=== PATIENT | female | born 1960 | race Caucasian/White ===

== ENCOUNTER 2018-03-06 08:45 | Inpatient (IN) ==
[2018-03-06 10:20] LABS: Basophils % 0.7 % (0.0-0.8); Eosinophils # 0.2 10*3/uL (0.0-0.87); Eosinophils % 5.2 % (0.00-10.9); Hematocrit 32.7 VOL% (35.7-47.0); Hemoglobin 10.4 GM/DL (12.0-16.0); Immature Granulocytes % 1.3 %; Immature Granulocytes Absolute 0.06 #; Lymphocytes # 0.7 10*3/uL (1.4-4.0); Lymphocytes % 15.2 % (21.3-54.2); Mean Corpuscular HGB Conc 31.8 GM/DL (32-36); Mean Corpuscular Hemoglobin 35 PG (27-34); Mean Corpuscular Volume 108.6 FL (87-102); Mean Platelet Volume 10.4 FL (9.6-12.0); Monocytes # 0.5 10*3/uL (0.11-0.8); Monocytes % 9.8 % (1.7-12.7); Neutrophils # 3.1 10*3/uL (1.4-7.4); Neutrophils % 67.8 % (38.7-73.9); Red Blood Count 3.01 MC/CUMM (3.8-5.5); Red Cell Distribution Width 19.6 % (9.3-17.3); White Blood Count 4.6 T/CUMM (4-12)
[2018-03-06 10:21] LABS: Platelet Count 66 T/CUMM (130-400)
[2018-03-06 10:38] LABS: Albumin 2.5 G/DL (3.4-5.0); Calcium 8.6 MG/DL (8.5-10.1); Osmolality,Calculated 281.1 MOS/KG (273-304); Potassium 3.3 MMOL/L (3.5-5.1); Total Protein 6.8 G/DL (6.4-8.3)
[2018-03-06 10:39] LABS: Macrocytosis 1+; Polychromasia Slight
[2018-03-06 10:40] LABS: Platelet Estimate Decreased
[2018-03-06 10:42] LABS: Ovalocytes Slight
[2018-03-06 10:43] LABS: Hypochromasia Slight
[2018-03-06] MEDS ORDERED: POTASSIUM CHLORIDE 20 MEQ TABLET PO STA (11:37)
[2018-03-06] MEDS ORDERED: LEVOFLOXACIN INJ 500 MG in PREMIX 1 EACH IV STA (12:04)
[2018-03-06] MEDS ORDERED: INFLUENZA VIRUS VACCINE 0.5 ML SYRINGE IM ONE (13:12)
[2018-03-06] MEDS ORDERED: FUROSEMIDE 40 MG/4 ML VIAL IV ONE (16:25)
[2018-03-06] MEDS: traZODone 50 MG TABLET PO SCH (20:21)
[2018-03-06] MEDS: BUMETANIDE 1 MG TABLET PO SCH ×2 (20:21→20:24)
[2018-03-06] MEDS: DOCUSATE SODIUM 100 MG CAPSULE PO SCH ×2 (20:21→20:24)
[2018-03-06] MEDS: LACTULOSE 20 GM/30 ML UDCUP PO SCH ×2 (20:21→20:24)
[2018-03-06] MEDS: RIFAXIMIN 550 MG TABLET PO SCH (20:21)
[2018-03-06] MEDS: ACETAMINOPHEN 325 MG TABLET PO PRN (23:28)
[2018-03-07 07:18] LABS: Basophils % 0.9 % (0.0-0.8); Eosinophils # 0.3 10*3/uL (0.0-0.87); Eosinophils % 5.5 % (0.00-10.9); Hematocrit 26.6 VOL% (35.7-47.0); Immature Granulocytes % 0.9 %; Immature Granulocytes Absolute 0.04 #; Lymphocytes # 1.1 10*3/uL (1.4-4.0); Lymphocytes % 24.6 % (21.3-54.2); Mean Corpuscular HGB Conc 31.6 GM/DL (32-36); Mean Corpuscular Hemoglobin 35 PG (27-34); Mean Corpuscular Volume 109.9 FL (87-102); Mean Platelet Volume 10.2 FL (9.6-12.0); Monocytes # 0.5 10*3/uL (0.11-0.8); Monocytes % 10.5 % (1.7-12.7); Neutrophils # 2.6 10*3/uL (1.4-7.4); Neutrophils % 57.6 % (38.7-73.9); Red Blood Count 2.42 MC/CUMM (3.8-5.5); White Blood Count 4.6 T/CUMM (4-12)
[2018-03-07 07:19] LABS: Hemoglobin 8.4 GM/DL (12.0-16.0); Platelet Count 58 T/CUMM (130-400)
[2018-03-07 07:30] LABS: Calcium 7.5 MG/DL (8.5-10.1); Osmolality,Calculated 281.1 MOS/KG (273-304); Potassium 3.3 MMOL/L (3.5-5.1)
[2018-03-07 07:50] LABS: Platelet Estimate Decreased
[2018-03-07 07:51] LABS: Anisocytosis 2+; Hypochromasia Slight; Macrocytosis Slight
[2018-03-07] MEDS: LACTULOSE 20 GM/30 ML UDCUP PO SCH ×2 (09:37→21:25)
[2018-03-07] MEDS: BUMETANIDE 1 MG TABLET PO SCH ×2 (09:37→21:25)
[2018-03-07] MEDS: DOCUSATE SODIUM 100 MG CAPSULE PO SCH ×2 (09:37→21:26)
[2018-03-07] MEDS: FAMOTIDINE 20 MG TABLET PO SCH (09:37)
[2018-03-07] MEDS: SPIRONOLACTONE 50 MG TABLET PO SCH (09:37)
[2018-03-07] MEDS: FLUoxetine 20 MG CAPSULE PO SCH (09:37)
[2018-03-07] MEDS: PANTOPRAZOLE 40 MG TABLET PO SCH (09:37)
[2018-03-07] MEDS: LEVOTHYROXINE 200 MCG TABLET PO SCH (09:37)
[2018-03-07] MEDS: RIFAXIMIN 550 MG TABLET PO SCH ×2 (09:37→21:20)
[2018-03-07] MEDS: POTASSIUM CHLORIDE 20 MEQ TABLET PO SCH (09:37)
[2018-03-07] MEDS: BENZONATATE 100 MG CAPSULE PO PRN ×2 (10:21→21:20)
[2018-03-07] MEDS: LEVOFLOXACIN INJ 750 MG in PREMIX 1 EACH IV SCH (10:21)
[2018-03-07] MEDS: MECLIZINE 25 MG TABLET PO PRN ×2 (10:29→21:20)
[2018-03-07 14:14] LABS: Total Protein,Body Fluid 2.3 G/DL
[2018-03-07 14:20] LABS: Lymphocytes,Pleural Fluid 97 %; Neutrophils,Pleural Fluid 3 %
[2018-03-07 14:25] LABS: RBC,Pleural Fluid 1386 T/CUMM
[2018-03-07 15:31] LABS: Hematocrit 28.7 VOL% (35.7-47.0); Hemoglobin 8.8 GM/DL (12.0-16.0)
[2018-03-07] MEDS: ACETAMINOPHEN 325 MG TABLET PO PRN ×2 (15:43→21:24)
[2018-03-07] MEDS: traZODone 50 MG TABLET PO SCH (21:20)
[2018-03-08 06:00] LABS: Basophils % 0.9 % (0.0-0.8); Eosinophils # 0.3 10*3/uL (0.0-0.87); Eosinophils % 7.2 % (0.00-10.9); Hematocrit 27.1 VOL% (35.7-47.0); Hemoglobin 8.4 GM/DL (12.0-16.0); Immature Granulocytes % 0.6 %; Immature Granulocytes Absolute 0.02 #; Lymphocytes # 0.9 10*3/uL (1.4-4.0); Lymphocytes % 25.3 % (21.3-54.2); Mean Corpuscular Hemoglobin 34 PG (27-34); Mean Corpuscular Volume 109.3 FL (87-102); Mean Platelet Volume 10.6 FL (9.6-12.0); Monocytes # 0.4 10*3/uL (0.11-0.8); Monocytes % 10.9 % (1.7-12.7); Neutrophils # 1.9 10*3/uL (1.4-7.4); Neutrophils % 55.1 % (38.7-73.9); Red Blood Count 2.48 MC/CUMM (3.8-5.5); Red Cell Distribution Width 19.7 % (9.3-17.3); White Blood Count 3.5 T/CUMM (4-12)
[2018-03-08 06:03] LABS: Platelet Count 53 T/CUMM (130-400)
[2018-03-08 06:14] LABS: Calcium 7.8 MG/DL (8.5-10.1); Potassium 3.1 MMOL/L (3.5-5.1)
[2018-03-08 06:36] LABS: Hypochromasia 1+; Ovalocytes Slight; Platelet Estimate Decreased
[2018-03-08 06:37] LABS: Macrocytosis Slight
[2018-03-08] MEDS ORDERED: POTASSIUM CHLORIDE 20 MEQ TABLET PO ONE (07:49)
[2018-03-08] MEDS: BUMETANIDE 1 MG TABLET PO SCH ×2 (10:04→20:59)
[2018-03-08] MEDS: LEVOTHYROXINE 200 MCG TABLET PO SCH (10:04)
[2018-03-08] MEDS: MECLIZINE 25 MG TABLET PO PRN (10:04)
[2018-03-08] MEDS: FLUoxetine 20 MG CAPSULE PO SCH (10:05)
[2018-03-08] MEDS: SPIRONOLACTONE 50 MG TABLET PO SCH (10:05)
[2018-03-08] MEDS: BENZONATATE 100 MG CAPSULE PO PRN (10:05)
[2018-03-08] MEDS: LACTULOSE 20 GM/30 ML UDCUP PO SCH ×2 (10:06→20:59)
[2018-03-08] MEDS: ACETAMINOPHEN 325 MG TABLET PO PRN (10:06)
[2018-03-08] MEDS: FAMOTIDINE 20 MG TABLET PO SCH (10:08)
[2018-03-08] MEDS: RIFAXIMIN 550 MG TABLET PO SCH ×2 (10:08→20:59)
[2018-03-08] MEDS: POTASSIUM CHLORIDE 20 MEQ TABLET PO SCH (10:08)
[2018-03-08] MEDS: DOCUSATE SODIUM 100 MG CAPSULE PO SCH ×2 (10:08→20:59)
[2018-03-08] MEDS: ONDANSETRON 4 MG/2 ML VIAL IV PRN (10:10)
[2018-03-08] MEDS: PANTOPRAZOLE 40 MG TABLET PO SCH (12:04)
[2018-03-08] MEDS: LEVOFLOXACIN INJ 750 MG in PREMIX 1 EACH IV SCH (12:05)
[2018-03-08] MEDS: MECLIZINE 25 MG TABLET PO SCH (20:59)
[2018-03-08] MEDS: traZODone 50 MG TABLET PO SCH (23:31)
[2018-03-09] MEDS: ACETAMINOPHEN 325 MG TABLET PO PRN ×2 (00:50→11:51)
[2018-03-09 05:20] LABS: Calcium 7.9 MG/DL (8.5-10.1); Osmolality,Calculated 276.4 MOS/KG (273-304); Potassium 3.4 MMOL/L (3.5-5.1)
[2018-03-09 05:37] LABS: Basophils % 0.7 % (0.0-0.8); Eosinophils # 0.3 10*3/uL (0.0-0.87); Eosinophils % 7.5 % (0.00-10.9); Hematocrit 27.5 VOL% (35.7-47.0); Hemoglobin 8.8 GM/DL (12.0-16.0); Immature Granulocytes Absolute 0.04 #; Lymphocytes % 23.1 % (21.3-54.2); Mean Corpuscular Hemoglobin 35 PG (27-34); Mean Corpuscular Volume 109.1 FL (87-102); Monocytes # 0.5 10*3/uL (0.11-0.8); Monocytes % 12.3 % (1.7-12.7); Neutrophils # 2.3 10*3/uL (1.4-7.4); Neutrophils % 55.4 % (38.7-73.9); Red Blood Count 2.52 MC/CUMM (3.8-5.5); Red Cell Distribution Width 19.3 % (9.3-17.3); White Blood Count 4.2 T/CUMM (4-12)
[2018-03-09 05:46] LABS: Platelet Count 62 T/CUMM (130-400)
[2018-03-09] MEDS: PANTOPRAZOLE 40 MG TABLET PO SCH (08:21)
[2018-03-09] MEDS: FAMOTIDINE 20 MG TABLET PO SCH (08:21)
[2018-03-09] MEDS: MECLIZINE 25 MG TABLET PO SCH (08:21)
[2018-03-09] MEDS: RIFAXIMIN 550 MG TABLET PO SCH ×2 (08:21→21:28)
[2018-03-09] MEDS: LEVOTHYROXINE 200 MCG TABLET PO SCH (08:21)
[2018-03-09] MEDS: POTASSIUM CHLORIDE 20 MEQ TABLET PO SCH (08:21)
[2018-03-09] MEDS: FLUoxetine 20 MG CAPSULE PO SCH (08:21)
[2018-03-09] MEDS: SPIRONOLACTONE 50 MG TABLET PO SCH (08:21)
[2018-03-09] MEDS: LACTULOSE 20 GM/30 ML UDCUP PO SCH ×2 (08:21→21:30)
[2018-03-09] MEDS: BUMETANIDE 1 MG TABLET PO SCH ×2 (08:21→21:30)
[2018-03-09] MEDS: DOCUSATE SODIUM 100 MG CAPSULE PO SCH ×2 (08:22→21:30)
[2018-03-09 08:27] LABS: Basophils % 0.5 % (0.0-0.8); Eosinophils # 0.3 10*3/uL (0.0-0.87); Hematocrit 27.5 VOL% (35.7-47.0); Hemoglobin 8.7 GM/DL (12.0-16.0); Immature Granulocytes % 0.5 %; Immature Granulocytes Absolute 0.02 #; Lymphocytes # 0.9 10*3/uL (1.4-4.0); Lymphocytes % 22.9 % (21.3-54.2); Mean Corpuscular HGB Conc 31.6 GM/DL (32-36); Mean Corpuscular Hemoglobin 35 PG (27-34); Mean Corpuscular Volume 109.6 FL (87-102); Mean Platelet Volume 10.3 FL (9.6-12.0); Monocytes # 0.4 10*3/uL (0.11-0.8); Monocytes % 10.9 % (1.7-12.7); Neutrophils # 2.3 10*3/uL (1.4-7.4); Neutrophils % 58.2 % (38.7-73.9); Platelet Count 54 T/CUMM (130-400); Red Blood Count 2.51 MC/CUMM (3.8-5.5)
[2018-03-09 09:13] LABS: Vitamin B12 1435 PG/ML (211-911)
[2018-03-09 10:55] LABS: Sedimentation Rate-Westergren 35 MM/HR (0-30)
[2018-03-09] MEDS: LEVOFLOXACIN INJ 750 MG in PREMIX 1 EACH IV SCH (11:51)
[2018-03-09] MEDS: MECLIZINE 25 MG TABLET PO PRN ×2 (13:33→21:28)
[2018-03-09] MEDS: traZODone 50 MG TABLET PO SCH (21:28)
[2018-03-10 06:20] LABS: Eosinophils # 0.3 10*3/uL (0.0-0.87); Eosinophils % 8.1 % (0.00-10.9); Hematocrit 28.7 VOL% (35.7-47.0); Hemoglobin 8.9 GM/DL (12.0-16.0); Immature Granulocytes % 0.7 %; Immature Granulocytes Absolute 0.03 #; Lymphocytes % 24.9 % (21.3-54.2); Mean Corpuscular Hemoglobin 34 PG (27-34); Mean Platelet Volume 10.1 FL (9.6-12.0); Monocytes # 0.4 10*3/uL (0.11-0.8); Monocytes % 9.6 % (1.7-12.7); Neutrophils # 2.3 10*3/uL (1.4-7.4); Neutrophils % 55.7 % (38.7-73.9); Red Blood Count 2.61 MC/CUMM (3.8-5.5); Red Cell Distribution Width 18.6 % (9.3-17.3); White Blood Count 4.1 T/CUMM (4-12)
[2018-03-10 06:22] LABS: Platelet Count 65 T/CUMM (130-400)
[2018-03-10 06:33] LABS: Calcium 7.5 MG/DL (8.5-10.1); Osmolality,Calculated 274.5 MOS/KG (273-304); Potassium 3.7 MMOL/L (3.5-5.1)
[2018-03-10] MEDS: POTASSIUM CHLORIDE 20 MEQ TABLET PO SCH (09:19)
[2018-03-10] MEDS: PANTOPRAZOLE 40 MG TABLET PO SCH (09:19)
[2018-03-10] MEDS: LEVOTHYROXINE 200 MCG TABLET PO SCH (09:19)
[2018-03-10] MEDS: RIFAXIMIN 550 MG TABLET PO SCH ×2 (09:19→21:30)
[2018-03-10] MEDS: FLUoxetine 20 MG CAPSULE PO SCH (09:19)
[2018-03-10] MEDS: FAMOTIDINE 20 MG TABLET PO SCH (09:19)
[2018-03-10] MEDS: SPIRONOLACTONE 50 MG TABLET PO SCH (09:19)
[2018-03-10] MEDS: LACTULOSE 20 GM/30 ML UDCUP PO SCH ×2 (09:19→21:29)
[2018-03-10] MEDS: BUMETANIDE 1 MG TABLET PO SCH ×2 (09:19→21:29)
[2018-03-10] MEDS: MECLIZINE 25 MG TABLET PO PRN ×2 (09:26→21:30)
[2018-03-10] MEDS: DOCUSATE SODIUM 100 MG CAPSULE PO SCH ×2 (11:33→21:29)
[2018-03-10] MEDS: LEVOFLOXACIN INJ 750 MG in PREMIX 1 EACH IV SCH (14:08)
[2018-03-10] MEDS: traZODone 50 MG TABLET PO SCH (21:30)
[2018-03-10] MEDS: ONDANSETRON 4 MG/2 ML VIAL IV PRN (22:55)
[2018-03-11] MEDS: FLUoxetine 20 MG CAPSULE PO SCH (08:16)
[2018-03-11] MEDS: POTASSIUM CHLORIDE 20 MEQ TABLET PO SCH (08:16)
[2018-03-11] MEDS: FAMOTIDINE 20 MG TABLET PO SCH (08:16)
[2018-03-11] MEDS: RIFAXIMIN 550 MG TABLET PO SCH ×2 (08:16→21:30)
[2018-03-11] MEDS: LACTULOSE 20 GM/30 ML UDCUP PO SCH ×2 (08:16→21:30)
[2018-03-11] MEDS: BUMETANIDE 1 MG TABLET PO SCH ×2 (08:16→21:31)
[2018-03-11] MEDS: PANTOPRAZOLE 40 MG TABLET PO SCH (08:16)
[2018-03-11] MEDS: SPIRONOLACTONE 50 MG TABLET PO SCH (08:16)
[2018-03-11] MEDS: LEVOTHYROXINE 200 MCG TABLET PO SCH (08:16)
[2018-03-11] MEDS: MECLIZINE 25 MG TABLET PO PRN (08:19)
[2018-03-11] MEDS: DOCUSATE SODIUM 100 MG CAPSULE PO SCH ×2 (10:52→21:30)
[2018-03-11] MEDS: LEVOFLOXACIN 500 MG TABLET PO SCH (12:30)
[2018-03-11] MEDS: traZODone 50 MG TABLET PO SCH (21:30)
[2018-03-12 05:50] LABS: Basophils % 0.8 % (0.0-0.8); Eosinophils # 0.2 10*3/uL (0.0-0.87); Eosinophils % 6.5 % (0.00-10.9); Hematocrit 26.8 VOL% (35.7-47.0); Hemoglobin 8.2 GM/DL (12.0-16.0); Immature Granulocytes % 1.1 %; Immature Granulocytes Absolute 0.04 #; Lymphocytes # 0.9 10*3/uL (1.4-4.0); Lymphocytes % 24.9 % (21.3-54.2); Mean Corpuscular HGB Conc 30.6 GM/DL (32-36); Mean Corpuscular Hemoglobin 34 PG (27-34); Mean Corpuscular Volume 110.7 FL (87-102); Monocytes # 0.4 10*3/uL (0.11-0.8); Monocytes % 11.1 % (1.7-12.7); Neutrophils # 2.1 10*3/uL (1.4-7.4); Neutrophils % 55.6 % (38.7-73.9); Red Blood Count 2.42 MC/CUMM (3.8-5.5); Red Cell Distribution Width 18.3 % (9.3-17.3); White Blood Count 3.7 T/CUMM (4-12)
[2018-03-12 05:52] LABS: Platelet Count 58 T/CUMM (130-400)
[2018-03-12 06:06] LABS: Calcium 7.8 MG/DL (8.5-10.1); Osmolality,Calculated 281.1 MOS/KG (273-304); Potassium 3.8 MMOL/L (3.5-5.1)
[2018-03-12] MEDS: FLUoxetine 20 MG CAPSULE PO SCH (08:30)
[2018-03-12] MEDS: SPIRONOLACTONE 50 MG TABLET PO SCH (08:30)
[2018-03-12] MEDS: LACTULOSE 20 GM/30 ML UDCUP PO SCH ×2 (08:30→21:24)
[2018-03-12] MEDS: RIFAXIMIN 550 MG TABLET PO SCH ×2 (08:30→21:25)
[2018-03-12] MEDS: LEVOFLOXACIN 500 MG TABLET PO SCH (08:30)
[2018-03-12] MEDS: FAMOTIDINE 20 MG TABLET PO SCH (08:30)
[2018-03-12] MEDS: LEVOTHYROXINE 200 MCG TABLET PO SCH (08:30)
[2018-03-12] MEDS: BUMETANIDE 1 MG TABLET PO SCH ×2 (08:30→21:24)
[2018-03-12] MEDS: POTASSIUM CHLORIDE 20 MEQ TABLET PO SCH (08:31)
[2018-03-12] MEDS: MECLIZINE 25 MG TABLET PO PRN ×2 (08:31→21:25)
[2018-03-12] MEDS: PANTOPRAZOLE 40 MG TABLET PO SCH (08:31)
[2018-03-12] MEDS: DOCUSATE SODIUM 100 MG CAPSULE PO SCH ×2 (08:31→21:25)
[2018-03-12] MEDS: traZODone 50 MG TABLET PO SCH (21:25)
[2018-03-13] MEDS: FAMOTIDINE 20 MG TABLET PO SCH (08:16)
[2018-03-13] MEDS: LACTULOSE 20 GM/30 ML UDCUP PO SCH (08:16)
[2018-03-13] MEDS: BUMETANIDE 1 MG TABLET PO SCH (08:16)
[2018-03-13] MEDS: LEVOTHYROXINE 200 MCG TABLET PO SCH (08:17)
[2018-03-13] MEDS: POTASSIUM CHLORIDE 20 MEQ TABLET PO SCH (08:17)
[2018-03-13] MEDS: RIFAXIMIN 550 MG TABLET PO SCH (08:17)
[2018-03-13] MEDS: SPIRONOLACTONE 50 MG TABLET PO SCH (08:17)
[2018-03-13] MEDS: PANTOPRAZOLE 40 MG TABLET PO SCH (08:17)
[2018-03-13] MEDS: LEVOFLOXACIN 500 MG TABLET PO SCH (08:17)
[2018-03-13] MEDS: FLUoxetine 20 MG CAPSULE PO SCH (08:17)
[2018-03-13 08:29] VITALS: BP 100/56
== END 2018-03-13 08:38 | disposition home or self-care (01) | DRG 432 ==
LOC: N.ED 08:45 → N.EDINP 11:51 → N.2W 12:31 → N.5E 14:05
PROVIDERS: ADMIT Family Medicine; ATTEND Family Medicine

== ENCOUNTER 2018-03-26 08:09 | Inpatient (IN) ==
[2018-03-26 09:02] LABS: Basophils % 0.9 % (0.0-0.8); Eosinophils # 0.4 10*3/uL (0.0-0.87); Eosinophils % 7.8 % (0.00-10.9); Hematocrit 31.6 VOL% (35.7-47.0); INR 1.6; Immature Granulocytes % 1.1 %; Immature Granulocytes Absolute 0.05 #; Lymphocytes # 0.8 10*3/uL (1.4-4.0); Lymphocytes % 17.1 % (21.3-54.2); Mean Corpuscular HGB Conc 31.6 GM/DL (32-36); Mean Corpuscular Hemoglobin 34 PG (27-34); Mean Corpuscular Volume 108.2 FL (87-102); Mean Platelet Volume 9.7 FL (9.6-12.0); Monocytes # 0.4 10*3/uL (0.11-0.8); Monocytes % 9.3 % (1.7-12.7); Neutrophils % 63.8 % (38.7-73.9); PT Patient Result 16.8 SECS; Platelet Count 75 T/CUMM (130-400); Red Blood Count 2.92 MC/CUMM (3.8-5.5); Red Cell Distribution Width 16.7 % (9.3-17.3); White Blood Count 4.6 T/CUMM (4-12)
[2018-03-26] MEDS ORDERED: ALBUTEROL 2.5 MG/3 ML NEB RESP TX STA (09:05)
[2018-03-26 09:22] LABS: Albumin 2.2 G/DL (3.4-5.0); Bilirubin,Total 8.3 MG/DL (0.2-1.0); Calcium 8.2 MG/DL (8.5-10.1); Osmolality,Calculated 279.1 MOS/KG (273-304); Potassium 3.2 MMOL/L (3.5-5.1); Total Protein 6.6 G/DL (6.4-8.3)
[2018-03-26] MEDS ORDERED: FUROSEMIDE 40 MG/4 ML VIAL IV STA (09:22)
[2018-03-26] MEDS ORDERED: LEVOFLOXACIN INJ 500 MG in PREMIX 1 EACH IV STA (09:25)
[2018-03-26 09:56] LABS: Microcytosis 1+; Ovalocytes Few; Polychromasia Few; Schistocytes Slight
[2018-03-26 09:57] LABS: Hypochromasia Slight; Platelet Estimate Decreased; Tear Drop Cells Slight
[2018-03-26] MEDS ORDERED: LACTATED RINGERS 1,000 ML IV SCH (12:12)
[2018-03-26] MEDS: SPIRONOLACTONE 25 MG TABLET PO SCH ×2 (13:18→21:14)
[2018-03-26] MEDS: FUROSEMIDE 20 MG/2 ML VIAL IV SCH (13:18)
[2018-03-26] MEDS ORDERED: MAGNESIUM SULF RIDER 2 GM in PREMIX 1 EACH IV ONE (14:16)
[2018-03-26] MEDS: POTASSIUM CHLORIDE 20 MEQ TABLET PO PRN ×3 (15:27→21:14)
[2018-03-26] MEDS: ACETAMINOPHEN 325 MG TABLET PO PRN ×2 (17:15→22:38)
[2018-03-26] MEDS: LACTULOSE 20 GM/30 ML UDCUP PO SCH ×2 (21:13→21:17)
[2018-03-26] MEDS: DOCUSATE SODIUM 100 MG CAPSULE PO SCH ×2 (21:13→21:18)
[2018-03-26] MEDS: RIFAXIMIN 550 MG TABLET PO SCH (21:14)
[2018-03-26] MEDS: traZODone 50 MG TABLET PO SCH (21:14)
[2018-03-27] MEDS: KETOROLAC 15 MG/1 ML VIAL IV PRN ×2 (02:38→21:34)
[2018-03-27] MEDS: POTASSIUM CHLORIDE 20 MEQ TABLET PO PRN (04:00)
[2018-03-27 05:21] LABS: Basophils % 0.5 % (0.0-0.8); Eosinophils # 0.3 10*3/uL (0.0-0.87); Eosinophils % 6.5 % (0.00-10.9); Hematocrit 27.5 VOL% (35.7-47.0); Hemoglobin 8.5 GM/DL (12.0-16.0); Immature Granulocytes % 0.5 %; Immature Granulocytes Absolute 0.02 #; Lymphocytes # 0.8 10*3/uL (1.4-4.0); Mean Corpuscular HGB Conc 30.9 GM/DL (32-36); Mean Corpuscular Hemoglobin 34 PG (27-34); Mean Corpuscular Volume 108.7 FL (87-102); Mean Platelet Volume 10.1 FL (9.6-12.0); Monocytes # 0.4 10*3/uL (0.11-0.8); Monocytes % 11.4 % (1.7-12.7); Neutrophils # 2.3 10*3/uL (1.4-7.4); Neutrophils % 60.1 % (38.7-73.9); Red Blood Count 2.53 MC/CUMM (3.8-5.5); Red Cell Distribution Width 16.4 % (9.3-17.3); White Blood Count 3.9 T/CUMM (4-12)
[2018-03-27 05:23] LABS: Platelet Count 59 T/CUMM (130-400)
[2018-03-27 05:42] LABS: Albumin 1.9 G/DL (3.4-5.0); Bilirubin,Total 7.6 MG/DL (0.2-1.0); Osmolality,Calculated 281.1 MOS/KG (273-304); Potassium 3.1 MMOL/L (3.5-5.1); Total Protein 5.8 G/DL (6.4-8.3)
[2018-03-27] MEDS ORDERED: SPIRONOLACTONE 50 MG TABLET PO SCH (09:00)
[2018-03-27] MEDS: FAMOTIDINE 20 MG TABLET PO SCH (09:42)
[2018-03-27] MEDS: LACTULOSE 20 GM/30 ML UDCUP PO SCH ×2 (09:42→21:26)
[2018-03-27] MEDS: DOCUSATE SODIUM 100 MG CAPSULE PO SCH ×2 (09:43→21:26)
[2018-03-27] MEDS: PANTOPRAZOLE 40 MG TABLET PO SCH (09:43)
[2018-03-27] MEDS: RIFAXIMIN 550 MG TABLET PO SCH ×2 (09:43→21:25)
[2018-03-27] MEDS: DILTIAZEM CD 180 MG CAPSULE PO SCH (09:43)
[2018-03-27] MEDS: SPIRONOLACTONE 25 MG TABLET PO SCH ×2 (09:43→21:24)
[2018-03-27] MEDS: LEVOTHYROXINE 200 MCG TABLET PO SCH (09:43)
[2018-03-27] MEDS: POTASSIUM CHLORIDE 20 MEQ TABLET PO SCH (09:43)
[2018-03-27] MEDS: FUROSEMIDE 20 MG/2 ML VIAL IV SCH (09:43)
[2018-03-27] MEDS: FLUoxetine 20 MG CAPSULE PO SCH (09:43)
[2018-03-27] MEDS: ACETAMINOPHEN 325 MG TABLET PO PRN (09:44)
[2018-03-27] MEDS: ONDANSETRON 4 MG/2 ML VIAL IV PRN (10:45)
[2018-03-27] MEDS ORDERED: POTASSIUM CHLORIDE 20 MEQ TABLET PO ONE (14:14)
[2018-03-27] MEDS ORDERED: ONDANSETRON 4 MG/2 ML VIAL IV ONE (14:25)
[2018-03-27] MEDS: BUMETANIDE 1 MG TABLET PO SCH ×2 (14:50→21:24)
[2018-03-27] MEDS: traZODone 50 MG TABLET PO SCH (23:00)
[2018-03-28] MEDS: ALBUTEROL/IPRATROPIUM 3 ML NEB RESP TX SCH ×4 (00:17→20:38)
[2018-03-28] MEDS: LEVOTHYROXINE 200 MCG TABLET PO SCH (09:32)
[2018-03-28] MEDS: RIFAXIMIN 550 MG TABLET PO SCH ×2 (09:32→21:52)
[2018-03-28] MEDS: DOCUSATE SODIUM 100 MG CAPSULE PO SCH ×2 (09:32→21:53)
[2018-03-28] MEDS: FLUoxetine 20 MG CAPSULE PO SCH (09:32)
[2018-03-28] MEDS: FAMOTIDINE 20 MG TABLET PO SCH (09:32)
[2018-03-28] MEDS: POTASSIUM CHLORIDE 20 MEQ TABLET PO SCH (09:32)
[2018-03-28] MEDS: PANTOPRAZOLE 40 MG TABLET PO SCH (09:33)
[2018-03-28] MEDS: ACETAMINOPHEN 325 MG TABLET PO PRN (10:41)
[2018-03-28] MEDS: LACTULOSE 20 GM/30 ML UDCUP PO SCH ×2 (10:43→21:53)
[2018-03-28 11:30] LABS: Basophils # 0.1 10*3/uL (0.0-0.2); Basophils % 0.8 % (0.0-0.8); Eosinophils # 0.5 10*3/uL (0.0-0.87); Eosinophils % 9.1 % (0.00-10.9); Hematocrit 35.2 VOL% (35.7-47.0); Hemoglobin 10.9 GM/DL (12.0-16.0); Immature Granulocytes % 0.8 %; Immature Granulocytes Absolute 0.05 #; Lymphocytes # 1.1 10*3/uL (1.4-4.0); Lymphocytes % 18.4 % (21.3-54.2); Mean Corpuscular Hemoglobin 34 PG (27-34); Mean Corpuscular Volume 110.7 FL (87-102); Mean Platelet Volume 10.1 FL (9.6-12.0); Monocytes # 0.4 10*3/uL (0.11-0.8); Monocytes % 7.3 % (1.7-12.7); Neutrophils # 3.8 10*3/uL (1.4-7.4); Neutrophils % 63.6 % (38.7-73.9); Red Blood Count 3.18 MC/CUMM (3.8-5.5); Red Cell Distribution Width 16.6 % (9.3-17.3); White Blood Count 5.9 T/CUMM (4-12)
[2018-03-28 11:36] LABS: Platelet Count 100 T/CUMM (130-400)
[2018-03-28 11:45] LABS: Calcium 8.5 MG/DL (8.5-10.1); Osmolality,Calculated 274.7 MOS/KG (273-304); Potassium 3.4 MMOL/L (3.5-5.1)
[2018-03-28 11:49] LABS: Hypochromasia 1+; Ovalocytes Slight; Platelet Estimate Decreased
[2018-03-28] MEDS: SPIRONOLACTONE 25 MG TABLET PO SCH ×2 (13:32→21:53)
[2018-03-28] MEDS: BUMETANIDE 1 MG TABLET PO SCH ×2 (13:32→21:52)
[2018-03-28] MEDS: DILTIAZEM CD 180 MG CAPSULE PO SCH (13:32)
[2018-03-28] MEDS: DILTIAZEM CD 120 MG CAPSULE PO SCH (15:50)
[2018-03-28] MEDS ORDERED: MAGNESIUM SULF RIDER 2 GM in PREMIX 1 EACH IV ONE (16:50)
[2018-03-28] MEDS ORDERED: MAGNESIUM SULF RIDER 2 GM in PREMIX 1 EACH IV PRN (17:02)
[2018-03-28] MEDS ORDERED: MAGNESIUM SULF RIDER 100 ML IV ONE (17:25)
[2018-03-28] MEDS: BENZONATATE 100 MG CAPSULE PO PRN (17:37)
[2018-03-28] MEDS ORDERED: MAGNESIUM SULF RIDER 4 GM in PREMIX 1 EACH IV PRN (18:00)
[2018-03-28] MEDS: traZODone 50 MG TABLET PO SCH (21:53)
[2018-03-28] MEDS: KETOROLAC 15 MG/1 ML VIAL IV PRN (22:00)
[2018-03-29] MEDS: ALBUTEROL/IPRATROPIUM 3 ML NEB RESP TX SCH ×4 (02:30→20:26)
[2018-03-29 06:03] LABS: Osmolality,Calculated 279.3 MOS/KG (273-304); Potassium 3.5 MMOL/L (3.5-5.1)
[2018-03-29 07:00] LABS: Basophils % 0.6 % (0.0-0.8); Eosinophils # 0.3 10*3/uL (0.0-0.87); Eosinophils % 7.8 % (0.00-10.9); Hematocrit 28.2 VOL% (35.7-47.0); Immature Granulocytes % 0.3 %; Immature Granulocytes Absolute 0.01 #; Lymphocytes # 0.5 10*3/uL (1.4-4.0); Mean Corpuscular HGB Conc 31.2 GM/DL (32-36); Mean Corpuscular Hemoglobin 34 PG (27-34); Mean Corpuscular Volume 110.2 FL (87-102); Mean Platelet Volume 10.2 FL (9.6-12.0); Monocytes # 0.3 10*3/uL (0.11-0.8); Monocytes % 8.7 % (1.7-12.7); Neutrophils # 2.2 10*3/uL (1.4-7.4); Neutrophils % 66.6 % (38.7-73.9); Red Blood Count 2.56 MC/CUMM (3.8-5.5); Red Cell Distribution Width 16.7 % (9.3-17.3); White Blood Count 3.3 T/CUMM (4-12)
[2018-03-29 07:01] LABS: Hemoglobin 8.8 GM/DL (12.0-16.0); Platelet Count 62 T/CUMM (130-400)
[2018-03-29 07:47] LABS: Platelet Estimate Decreased
[2018-03-29 07:48] LABS: Anisocytosis 1+; Macrocytosis Slight
[2018-03-29] MEDS: RIFAXIMIN 550 MG TABLET PO SCH ×2 (08:23→21:31)
[2018-03-29] MEDS: BUMETANIDE 1 MG TABLET PO SCH ×2 (08:23→22:02)
[2018-03-29] MEDS: FAMOTIDINE 20 MG TABLET PO SCH (08:23)
[2018-03-29] MEDS: DILTIAZEM CD 120 MG CAPSULE PO SCH (08:23)
[2018-03-29] MEDS: LEVOTHYROXINE 200 MCG TABLET PO SCH (08:23)
[2018-03-29] MEDS: POTASSIUM CHLORIDE 20 MEQ TABLET PO SCH (08:24)
[2018-03-29] MEDS: PANTOPRAZOLE 40 MG TABLET PO SCH (08:24)
[2018-03-29] MEDS: SPIRONOLACTONE 25 MG TABLET PO SCH ×2 (08:24→21:32)
[2018-03-29] MEDS: FLUoxetine 20 MG CAPSULE PO SCH (08:24)
[2018-03-29] MEDS: ACETAMINOPHEN 325 MG TABLET PO PRN (10:53)
[2018-03-29] MEDS: DOCUSATE SODIUM 100 MG CAPSULE PO SCH ×2 (10:56→22:02)
[2018-03-29] MEDS: LACTULOSE 20 GM/30 ML UDCUP PO SCH ×2 (10:56→22:02)
[2018-03-29] MEDS: POTASSIUM CHLORIDE 20 MEQ TABLET PO PRN (21:32)
[2018-03-29] MEDS: KETOROLAC 15 MG/1 ML VIAL IV PRN (21:42)
[2018-03-29] MEDS: HydrOXYzine PAMOATE 25 MG CAPSULE PO PRN (21:42)
[2018-03-30] MEDS: ALBUTEROL/IPRATROPIUM 3 ML NEB RESP TX SCH ×4 (00:42→19:43)
[2018-03-30] MEDS: POTASSIUM CHLORIDE 20 MEQ TABLET PO PRN (01:34)
[2018-03-30 05:09] LABS: Basophils % 0.5 % (0.0-0.8); Eosinophils # 0.4 10*3/uL (0.0-0.87); Eosinophils % 7.4 % (0.00-10.9); Hematocrit 27.1 VOL% (35.7-47.0); Hemoglobin 8.2 GM/DL (12.0-16.0); Immature Granulocytes % 0.5 %; Immature Granulocytes Absolute 0.03 #; Lymphocytes # 1.1 10*3/uL (1.4-4.0); Lymphocytes % 19.8 % (21.3-54.2); Mean Corpuscular HGB Conc 30.3 GM/DL (32-36); Mean Corpuscular Hemoglobin 34 PG (27-34); Mean Corpuscular Volume 111.1 FL (87-102); Monocytes # 0.5 10*3/uL (0.11-0.8); Monocytes % 9.4 % (1.7-12.7); Neutrophils # 3.4 10*3/uL (1.4-7.4); Neutrophils % 62.4 % (38.7-73.9); Platelet Count 57 T/CUMM (130-400); Red Blood Count 2.44 MC/CUMM (3.8-5.5); Red Cell Distribution Width 16.8 % (9.3-17.3); White Blood Count 5.5 T/CUMM (4-12)
[2018-03-30 05:28] LABS: Calcium 7.9 MG/DL (8.5-10.1); Osmolality,Calculated 277.4 MOS/KG (273-304); Potassium 4.2 MMOL/L (3.5-5.1)
[2018-03-30 05:35] LABS: Band Neutrophils 17 % (0-10); Eosinophils 4 % (0-10); Lymphocytes 20 % (20-55); Platelet Estimate Decreased; Segmented Neutrophils 49 % (50-85); Total Cells Counted 100
[2018-03-30 05:36] LABS: Anisocytosis 1+; Hypochromasia Slight
[2018-03-30] MEDS: ACETAMINOPHEN 325 MG TABLET PO PRN ×2 (09:31→15:15)
[2018-03-30] MEDS: LACTULOSE 20 GM/30 ML UDCUP PO SCH ×2 (09:31→21:25)
[2018-03-30] MEDS: HydrOXYzine PAMOATE 25 MG CAPSULE PO PRN ×2 (09:31→21:22)
[2018-03-30] MEDS: FAMOTIDINE 20 MG TABLET PO SCH (09:31)
[2018-03-30] MEDS: BUMETANIDE 1 MG TABLET PO SCH ×2 (09:31→21:25)
[2018-03-30] MEDS: PANTOPRAZOLE 40 MG TABLET PO SCH (09:32)
[2018-03-30] MEDS: FLUoxetine 20 MG CAPSULE PO SCH (09:32)
[2018-03-30] MEDS: DOCUSATE SODIUM 100 MG CAPSULE PO SCH ×3 (09:32→21:26)
[2018-03-30] MEDS: DILTIAZEM CD 120 MG CAPSULE PO SCH (09:32)
[2018-03-30] MEDS: SPIRONOLACTONE 25 MG TABLET PO SCH ×2 (09:32→21:15)
[2018-03-30] MEDS: FLUoxetine 10 MG CAPSULE PO SCH (09:32)
[2018-03-30] MEDS: RIFAXIMIN 550 MG TABLET PO SCH ×2 (09:32→21:13)
[2018-03-30] MEDS: POTASSIUM CHLORIDE 20 MEQ TABLET PO SCH (09:32)
[2018-03-30] MEDS: LEVOTHYROXINE 200 MCG TABLET PO SCH (09:41)
[2018-03-30] MEDS: AMOXICILLIN 500 MG CAPSULE PO SCH ×2 (15:13→21:46)
[2018-03-30] MEDS: FLUTICASONE 50 MCG NASAL SPRAY 16 GM BOTTLE BOTH NARES SCH (15:14)
[2018-03-30] MEDS: CETIRIZINE 10 MG TABLET PO SCH (15:14)
[2018-03-30 17:43] LABS: INR 1.4; PT Patient Result 15.6 SECS
[2018-03-30] MEDS: SILDENAFIL 20 MG TABLET PO SCH (21:14)
[2018-03-30] MEDS: KETOROLAC 15 MG/1 ML VIAL IV PRN (21:22)
[2018-03-31] MEDS: ALBUTEROL/IPRATROPIUM 3 ML NEB RESP TX SCH ×4 (01:08→19:03)
[2018-03-31 06:22] LABS: Basophils % 0.6 % (0.0-0.8); Eosinophils # 0.4 10*3/uL (0.0-0.87); Eosinophils % 7.8 % (0.00-10.9); Hematocrit 28.9 VOL% (35.7-47.0); Hemoglobin 8.7 GM/DL (12.0-16.0); Immature Granulocytes % 0.4 %; Immature Granulocytes Absolute 0.02 #; Lymphocytes # 0.9 10*3/uL (1.4-4.0); Lymphocytes % 18.5 % (21.3-54.2); Mean Corpuscular HGB Conc 30.1 GM/DL (32-36); Mean Corpuscular Hemoglobin 34 PG (27-34); Mean Platelet Volume 10.5 FL (9.6-12.0); Monocytes # 0.4 10*3/uL (0.11-0.8); Monocytes % 8.8 % (1.7-12.7); Neutrophils # 3.1 10*3/uL (1.4-7.4); Neutrophils % 63.9 % (38.7-73.9); Red Blood Count 2.58 MC/CUMM (3.8-5.5); Red Cell Distribution Width 16.7 % (9.3-17.3); White Blood Count 4.9 T/CUMM (4-12)
[2018-03-31 06:24] LABS: Platelet Count 61 T/CUMM (130-400)
[2018-03-31 06:38] LABS: Calcium 7.9 MG/DL (8.5-10.1); Osmolality,Calculated 277.5 MOS/KG (273-304); Potassium 4.8 MMOL/L (3.5-5.1)
[2018-03-31] MEDS: AMOXICILLIN 500 MG CAPSULE PO SCH ×3 (06:42→22:04)
[2018-03-31 06:47] LABS: Platelet Estimate Decreased
[2018-03-31 06:48] LABS: Polychromasia Few
[2018-03-31] MEDS: POTASSIUM CHLORIDE 20 MEQ TABLET PO SCH (09:21)
[2018-03-31] MEDS: RIFAXIMIN 550 MG TABLET PO SCH ×2 (09:21→22:04)
[2018-03-31] MEDS: DILTIAZEM CD 120 MG CAPSULE PO SCH (09:21)
[2018-03-31] MEDS: LEVOTHYROXINE 200 MCG TABLET PO SCH (09:21)
[2018-03-31] MEDS: SPIRONOLACTONE 25 MG TABLET PO SCH ×2 (09:21→22:08)
[2018-03-31] MEDS: FAMOTIDINE 20 MG TABLET PO SCH (09:21)
[2018-03-31] MEDS: FLUoxetine 10 MG CAPSULE PO SCH (09:21)
[2018-03-31] MEDS: FLUoxetine 20 MG CAPSULE PO SCH (09:21)
[2018-03-31] MEDS: CETIRIZINE 10 MG TABLET PO SCH (09:22)
[2018-03-31] MEDS: PANTOPRAZOLE 40 MG TABLET PO SCH (09:22)
[2018-03-31] MEDS: BUMETANIDE 1 MG TABLET PO SCH ×2 (09:22→22:03)
[2018-03-31] MEDS: SILDENAFIL 20 MG TABLET PO SCH ×3 (09:23→22:04)
[2018-03-31] MEDS: LACTULOSE 20 GM/30 ML UDCUP PO SCH ×2 (09:25→22:04)
[2018-03-31] MEDS: DOCUSATE SODIUM 100 MG CAPSULE PO SCH ×2 (09:25→22:04)
[2018-03-31] MEDS: FLUTICASONE 50 MCG NASAL SPRAY 16 GM BOTTLE BOTH NARES SCH (09:26)
[2018-03-31] MEDS: HydrOXYzine PAMOATE 25 MG CAPSULE PO PRN ×2 (14:30→22:04)
[2018-03-31] MEDS: ACETAMINOPHEN 325 MG TABLET PO PRN (16:22)
[2018-03-31] MEDS: KETOROLAC 15 MG/1 ML VIAL IV PRN (18:40)
[2018-04-01] MEDS: ALBUTEROL/IPRATROPIUM 3 ML NEB RESP TX SCH ×4 (00:34→19:01)
[2018-04-01] MEDS: AMOXICILLIN 500 MG CAPSULE PO SCH ×3 (05:16→21:12)
[2018-04-01] MEDS: DILTIAZEM CD 120 MG CAPSULE PO SCH (08:30)
[2018-04-01] MEDS: RIFAXIMIN 550 MG TABLET PO SCH ×2 (08:30→21:12)
[2018-04-01] MEDS: LEVOTHYROXINE 200 MCG TABLET PO SCH (08:30)
[2018-04-01] MEDS: PANTOPRAZOLE 40 MG TABLET PO SCH (08:31)
[2018-04-01] MEDS: BUMETANIDE 1 MG TABLET PO SCH ×2 (08:31→20:30)
[2018-04-01] MEDS: FAMOTIDINE 20 MG TABLET PO SCH (08:31)
[2018-04-01] MEDS: SPIRONOLACTONE 25 MG TABLET PO SCH ×2 (08:31→21:12)
[2018-04-01] MEDS: POTASSIUM CHLORIDE 20 MEQ TABLET PO SCH (08:31)
[2018-04-01] MEDS: FLUoxetine 20 MG CAPSULE PO SCH (08:31)
[2018-04-01] MEDS: FLUoxetine 10 MG CAPSULE PO SCH (08:32)
[2018-04-01] MEDS: CETIRIZINE 10 MG TABLET PO SCH (08:32)
[2018-04-01] MEDS: DOCUSATE SODIUM 100 MG CAPSULE PO SCH ×2 (08:33→20:31)
[2018-04-01] MEDS: FLUTICASONE 50 MCG NASAL SPRAY 16 GM BOTTLE BOTH NARES SCH (08:33)
[2018-04-01] MEDS: SILDENAFIL 20 MG TABLET PO SCH ×3 (08:38→21:12)
[2018-04-01] MEDS: HydrOXYzine PAMOATE 25 MG CAPSULE PO PRN ×2 (08:44→21:12)
[2018-04-01] MEDS: ONDANSETRON 4 MG/2 ML VIAL IV PRN (09:27)
[2018-04-01] MEDS: LACTULOSE 20 GM/30 ML UDCUP PO SCH ×2 (10:24→20:30)
[2018-04-01] MEDS: ACETAMINOPHEN 325 MG TABLET PO PRN (16:21)
[2018-04-01] MEDS: KETOROLAC 15 MG/1 ML VIAL IV PRN (18:45)
[2018-04-02] MEDS: ALBUTEROL/IPRATROPIUM 3 ML NEB RESP TX SCH ×4 (00:28→19:05)
[2018-04-02 04:40] LABS: INR 1.4; PT Patient Result 15.2 SECS
[2018-04-02 04:57] LABS: Calcium 8.2 MG/DL (8.5-10.1); Osmolality,Calculated 278.8 MOS/KG (273-304); Potassium 5.1 MMOL/L (3.5-5.1)
[2018-04-02] MEDS: AMOXICILLIN 500 MG CAPSULE PO SCH ×3 (06:18→23:10)
[2018-04-02 08:54] LABS: INR 1.4; PT Patient Result 14.7 SECS
[2018-04-02 09:06] LABS: Basophils % 0.7 % (0.0-0.8); Eosinophils # 0.5 10*3/uL (0.0-0.87); Eosinophils % 7.5 % (0.00-10.9); Hematocrit 26.6 VOL% (35.7-47.0); Immature Granulocytes Absolute 0.06 #; Lymphocytes # 1.2 10*3/uL (1.4-4.0); Lymphocytes % 20.3 % (21.3-54.2); Mean Corpuscular HGB Conc 30.1 GM/DL (32-36); Mean Corpuscular Hemoglobin 34 PG (27-34); Mean Corpuscular Volume 112.7 FL (87-102); Monocytes # 0.6 10*3/uL (0.11-0.8); Monocytes % 10.3 % (1.7-12.7); Neutrophils # 3.6 10*3/uL (1.4-7.4); Neutrophils % 60.2 % (38.7-73.9); Red Blood Count 2.36 MC/CUMM (3.8-5.5); Red Cell Distribution Width 16.4 % (9.3-17.3)
[2018-04-02 09:07] LABS: Platelet Count 71 T/CUMM (130-400)
[2018-04-02] MEDS: KETOROLAC 15 MG/1 ML VIAL IV PRN (09:17)
[2018-04-02] MEDS ORDERED: ALPRAZolam 0.5 MG TABLET PO ONE (09:20)
[2018-04-02 09:30] LABS: Hypochromasia 1+; Macrocytosis Slight
[2018-04-02 09:32] LABS: Platelet Estimate Decreased
[2018-04-02] MEDS: PANTOPRAZOLE 40 MG TABLET PO SCH (12:35)
[2018-04-02] MEDS: FLUoxetine 20 MG CAPSULE PO SCH (12:35)
[2018-04-02] MEDS: FLUoxetine 10 MG CAPSULE PO SCH (12:35)
[2018-04-02] MEDS: RIFAXIMIN 550 MG TABLET PO SCH ×2 (12:35→20:41)
[2018-04-02] MEDS: CETIRIZINE 10 MG TABLET PO SCH (12:35)
[2018-04-02] MEDS: LEVOTHYROXINE 200 MCG TABLET PO SCH (12:35)
[2018-04-02] MEDS: SILDENAFIL 20 MG TABLET PO SCH ×3 (12:35→20:47)
[2018-04-02] MEDS: SPIRONOLACTONE 25 MG TABLET PO SCH ×2 (12:36→20:40)
[2018-04-02] MEDS: BUMETANIDE 1 MG TABLET PO SCH (12:36)
[2018-04-02] MEDS: DILTIAZEM CD 120 MG CAPSULE PO SCH (12:36)
[2018-04-02] MEDS: FLUTICASONE 50 MCG NASAL SPRAY 16 GM BOTTLE BOTH NARES SCH (12:36)
[2018-04-02] MEDS: FAMOTIDINE 20 MG TABLET PO SCH (12:36)
[2018-04-02] MEDS: LACTULOSE 20 GM/30 ML UDCUP PO SCH ×2 (12:36→20:40)
[2018-04-02] MEDS: POTASSIUM CHLORIDE 20 MEQ TABLET PO SCH (12:36)
[2018-04-02] MEDS: DOCUSATE SODIUM 100 MG CAPSULE PO SCH ×2 (12:36→20:40)
[2018-04-02] MEDS: predniSONE 20 MG TABLET PO SCH (15:30)
[2018-04-02] MEDS: SODIUM CHLORIDE 0.9% 1,000 ML IV SCH (15:44)
[2018-04-02] MEDS: ACETAMINOPHEN 325 MG TABLET PO PRN (18:30)
[2018-04-02] MEDS: HydrOXYzine PAMOATE 25 MG CAPSULE PO PRN (20:39)
[2018-04-03] MEDS: ALBUTEROL/IPRATROPIUM 3 ML NEB RESP TX SCH ×4 (00:38→19:27)
[2018-04-03] MEDS: SODIUM CHLORIDE 0.9% 1,000 ML IV SCH ×2 (03:21→18:48)
[2018-04-03 04:55] LABS: Potassium 6.2 MMOL/L (3.5-5.1)
[2018-04-03] MEDS ORDERED: SODIUM POLYSTYRENE SULFATE 15 GM/60 ML BOTTLE PO STA (05:01)
[2018-04-03] MEDS: KETOROLAC 15 MG/1 ML VIAL IV PRN (05:57)
[2018-04-03] MEDS: AMOXICILLIN 500 MG CAPSULE PO SCH ×3 (06:25→21:05)
[2018-04-03] MEDS ORDERED: DOXYCYCLINE HYCLATE INJ 200 MG, LIDOCAINE 1% INJ 20 ML in STERILE WATER INJ 40 ML INTRAPLEUR ONE (08:00)
[2018-04-03] MEDS: SILDENAFIL 20 MG TABLET PO SCH ×3 (09:22→21:05)
[2018-04-03] MEDS: LEVOTHYROXINE 200 MCG TABLET PO SCH (09:22)
[2018-04-03] MEDS: FAMOTIDINE 20 MG TABLET PO SCH (09:22)
[2018-04-03] MEDS: SPIRONOLACTONE 25 MG TABLET PO SCH ×2 (09:23→21:05)
[2018-04-03] MEDS: FLUoxetine 10 MG CAPSULE PO SCH (09:23)
[2018-04-03] MEDS: CETIRIZINE 10 MG TABLET PO SCH (09:23)
[2018-04-03] MEDS: FLUoxetine 20 MG CAPSULE PO SCH (09:23)
[2018-04-03] MEDS: PANTOPRAZOLE 40 MG TABLET PO SCH (09:23)
[2018-04-03] MEDS: predniSONE 20 MG TABLET PO SCH (09:24)
[2018-04-03] MEDS: DILTIAZEM CD 120 MG CAPSULE PO SCH (09:24)
[2018-04-03] MEDS: DOCUSATE SODIUM 100 MG CAPSULE PO SCH ×2 (09:25→21:19)
[2018-04-03] MEDS: LACTULOSE 20 GM/30 ML UDCUP PO SCH ×2 (09:25→21:18)
[2018-04-03] MEDS: FLUTICASONE 50 MCG NASAL SPRAY 16 GM BOTTLE BOTH NARES SCH (09:26)
[2018-04-03] MEDS: HydrOXYzine PAMOATE 25 MG CAPSULE PO PRN (09:50)
[2018-04-03] MEDS: MORPHINE 4 MG/1 ML VIAL IV PRN ×3 (09:50→19:29)
[2018-04-04] MEDS: ALBUTEROL/IPRATROPIUM 3 ML NEB RESP TX SCH ×4 (01:33→19:37)
[2018-04-04] MEDS: MORPHINE 4 MG/1 ML VIAL IV PRN ×4 (02:23→19:16)
[2018-04-04] MEDS: KETOROLAC 15 MG/1 ML VIAL IV PRN ×2 (04:34→21:31)
[2018-04-04 05:22] LABS: Calcium 8.2 MG/DL (8.5-10.1); Osmolality,Calculated 284.7 MOS/KG (273-304); Potassium 5.2 MMOL/L (3.5-5.1)
[2018-04-04] MEDS: AMOXICILLIN 500 MG CAPSULE PO SCH (05:49)
[2018-04-04] MEDS: SODIUM CHLORIDE 0.9% 1,000 ML IV SCH ×2 (07:29→21:31)
[2018-04-04] MEDS: SPIRONOLACTONE 25 MG TABLET PO SCH ×2 (09:28→21:20)
[2018-04-04] MEDS: LEVOTHYROXINE 200 MCG TABLET PO SCH (09:28)
[2018-04-04] MEDS: FLUoxetine 20 MG CAPSULE PO SCH (09:28)
[2018-04-04] MEDS: FLUoxetine 10 MG CAPSULE PO SCH (09:28)
[2018-04-04] MEDS: DOCUSATE SODIUM 100 MG CAPSULE PO SCH ×2 (09:29→21:20)
[2018-04-04] MEDS: CETIRIZINE 10 MG TABLET PO SCH (09:29)
[2018-04-04] MEDS: DILTIAZEM CD 120 MG CAPSULE PO SCH (09:29)
[2018-04-04] MEDS: predniSONE 20 MG TABLET PO SCH (09:29)
[2018-04-04] MEDS: FAMOTIDINE 20 MG TABLET PO SCH (09:29)
[2018-04-04] MEDS: PANTOPRAZOLE 40 MG TABLET PO SCH (09:29)
[2018-04-04] MEDS: LACTULOSE 20 GM/30 ML UDCUP PO SCH ×2 (09:29→21:31)
[2018-04-04] MEDS: SILDENAFIL 20 MG TABLET PO SCH ×3 (09:29→21:20)
[2018-04-04] MEDS: BENZONATATE 100 MG CAPSULE PO PRN ×2 (09:33→21:35)
[2018-04-04] MEDS: FLUTICASONE 50 MCG NASAL SPRAY 16 GM BOTTLE BOTH NARES SCH (09:34)
[2018-04-04] MEDS ORDERED: DOXYCYCLINE HYCLATE INJ 200 MG, LIDOCAINE 1% INJ 20 ML in STERILE WATER INJ 40 ML INTRAPLEUR ONE (14:00)
[2018-04-04] MEDS: ONDANSETRON 4 MG/2 ML VIAL IV PRN (19:20)
[2018-04-04] MEDS: HydrOXYzine PAMOATE 25 MG CAPSULE PO PRN (21:31)
[2018-04-05] MEDS: ALBUTEROL/IPRATROPIUM 3 ML NEB RESP TX SCH ×4 (00:45→20:06)
[2018-04-05] MEDS: MORPHINE 4 MG/1 ML VIAL IV PRN ×2 (01:16→06:31)
[2018-04-05 05:10] LABS: Basophils # 0.1 10*3/uL (0.0-0.2); Basophils % 0.8 % (0.0-0.8); Eosinophils # 0.9 10*3/uL (0.0-0.87); Eosinophils % 6.1 % (0.00-10.9); Hematocrit 26.3 VOL% (35.7-47.0); Hemoglobin 7.8 GM/DL (12.0-16.0); Immature Granulocytes % 5.3 %; Immature Granulocytes Absolute 0.82 #; Lymphocytes # 1.3 10*3/uL (1.4-4.0); Lymphocytes % 8.6 % (21.3-54.2); Mean Corpuscular HGB Conc 29.7 GM/DL (32-36); Mean Corpuscular Hemoglobin 34 PG (27-34); Mean Corpuscular Volume 114.3 FL (87-102); Mean Platelet Volume 9.6 FL (9.6-12.0); Monocytes # 1.7 10*3/uL (0.11-0.8); Monocytes % 11.3 % (1.7-12.7); NRBC # 0.06 10*3/uL; Neutrophils # 10.4 10*3/uL (1.4-7.4); Neutrophils % 67.9 % (38.7-73.9); Platelet Count 110 T/CUMM (130-400); White Blood Count 15.4 T/CUMM (4-12)
[2018-04-05 05:24] LABS: Calcium 8.5 MG/DL (8.5-10.1); Osmolality,Calculated 289.4 MOS/KG (273-304); Potassium 5.5 MMOL/L (3.5-5.1)
[2018-04-05 05:37] LABS: Band Neutrophils 1 % (0-10); Eosinophils 3 % (0-10); Lymphocytes 8 % (20-55); Segmented Neutrophils 71 % (50-85); Total Cells Counted 100
[2018-04-05 05:38] LABS: Hypochromasia 1+; Macrocytosis 1+; Ovalocytes Slight
[2018-04-05 05:39] LABS: Platelet Estimate Adequate
[2018-04-05] MEDS ORDERED: LACTULOSE 320 GM/480 ML BOTTLE RECTAL ONE (08:13)
[2018-04-05] MEDS ORDERED: PROPOFOL 200 MG/20 ML VIAL IV ONE (08:30)
[2018-04-05] MEDS ORDERED: SUCCINYLCHOLINE 200 MG/10 ML VIAL ONE (08:30)
[2018-04-05] MEDS ORDERED: LIDOCAINE 2% 5 ML VIAL ONE (08:30)
[2018-04-05] MEDS ORDERED: ETOMIDATE 20 MG/10 ML VIAL IV ONE (08:30)
[2018-04-05] MEDS ORDERED: ONDANSETRON 4 MG/2 ML VIAL ONE (08:30)
[2018-04-05] MEDS: DILTIAZEM CD 120 MG CAPSULE PO SCH ×2 (09:58→14:49)
[2018-04-05] MEDS: FAMOTIDINE 20 MG TABLET PO SCH ×2 (09:58→14:49)
[2018-04-05] MEDS: CETIRIZINE 10 MG TABLET PO SCH ×2 (09:59→14:50)
[2018-04-05] MEDS: FLUoxetine 20 MG CAPSULE PO SCH ×2 (09:59→14:49)
[2018-04-05] MEDS: predniSONE 20 MG TABLET PO SCH ×2 (09:59→14:49)
[2018-04-05] MEDS: FLUoxetine 10 MG CAPSULE PO SCH ×2 (09:59→14:50)
[2018-04-05] MEDS: LEVOTHYROXINE 200 MCG TABLET PO SCH ×2 (09:59→14:50)
[2018-04-05] MEDS: PANTOPRAZOLE 40 MG TABLET PO SCH ×2 (09:59→14:49)
[2018-04-05] MEDS: SILDENAFIL 20 MG TABLET PO SCH ×4 (10:00→20:01)
[2018-04-05] MEDS: DOCUSATE SODIUM 100 MG CAPSULE PO SCH ×2 (10:01→20:02)
[2018-04-05] MEDS: RIFAXIMIN 550 MG TABLET PO SCH ×3 (10:06→20:01)
[2018-04-05] MEDS: ONDANSETRON 4 MG/2 ML VIAL IV PRN (10:06)
[2018-04-05 11:34] LABS: Hematocrit 25.1 VOL% (35.7-47.0); Hemoglobin 7.5 GM/DL (12.0-16.0)
[2018-04-05] MEDS ORDERED: MIDAZOLAM 2 MG/2 ML VIAL ONE (13:40)
[2018-04-05] MEDS: PROPOFOL 1,000 MG/100 ML BOTTLE IV SCH ×2 (14:07→17:10)
[2018-04-05 14:32] LABS: Hematocrit 25.1 VOL% (35.7-47.0); Hemoglobin 7.2 GM/DL (12.0-16.0)
[2018-04-05 14:40] LABS: ABG Base Excess -3.3 MMOL/L (-2.5-2.5); ABG HCO3 22.7 MMOL/L (20-26); ABG Oxygen Saturation 98.1 % (95-100); ABG PCO2 45.4 MM HG (35-48); ABG PH 7.316 (7.35-7.45); ABG PO2 124.8 MM HG (80-95); ABG TCO2 24.1 MMOL/L (23-27)
[2018-04-05] MEDS: SODIUM CHLORIDE 0.9% 1,000 ML IV SCH ×2 (14:48→20:20)
[2018-04-05] MEDS: FLUTICASONE 50 MCG NASAL SPRAY 16 GM BOTTLE BOTH NARES SCH (14:49)
[2018-04-05] MEDS ORDERED: SODIUM CHLORIDE 0.9% 1,000 ML IV ONE ×2 (15:47→17:12)
[2018-04-05] MEDS ORDERED: NOREPINEPHRINE 4 MG/4 ML VIAL IV ONE (16:31)
[2018-04-05] MEDS ORDERED: NOREPINEPHRINE 8 MG in SODIUM CHLORIDE 0.9% 242 ML IV PRN (16:43)
[2018-04-05 16:44] LABS: INR 1.5; PT Patient Result 16.2 SECS; Partial Thromboplastin Time 31.3 SECS (0-40)
[2018-04-05] MEDS ORDERED: SODIUM CHLORIDE 0.9% 1,000 ML IV PRN (17:35)
[2018-04-05] MEDS ORDERED: FUROSEMIDE 40 MG/4 ML VIAL IV ONE (17:37)
[2018-04-05] MEDS ORDERED: FUROSEMIDE 20 MG/2 ML VIAL ONE (17:39)
[2018-04-05] MEDS ORDERED: PHENYLEPHRINE DRIP 40 MG/250 ML PREMIX IV ONE (17:49)
[2018-04-05] MEDS ORDERED: PHENYLEPHRINE DRIP 40 MG/250 ML PREMIX IV PRN (17:56)
[2018-04-05 19:01] LABS: Hematocrit 31.1 VOL% (35.7-47.0); Hemoglobin 9.3 GM/DL (12.0-16.0)
[2018-04-05 19:19] LABS: Basophils % 0.5 % (0.0-0.8); Eosinophils # 0.4 10*3/uL (0.0-0.87); Eosinophils % 10.8 % (0.00-10.9); Hematocrit 29.2 VOL% (35.7-47.0); Hemoglobin 8.5 GM/DL (12.0-16.0); Immature Granulocytes % 2.3 %; Immature Granulocytes Absolute 0.09 #; Lymphocytes # 0.8 10*3/uL (1.4-4.0); Lymphocytes % 19.3 % (21.3-54.2); Mean Corpuscular HGB Conc 29.1 GM/DL (32-36); Mean Corpuscular Hemoglobin 33 PG (27-34); Mean Corpuscular Volume 114.5 FL (87-102); Mean Platelet Volume 9.4 FL (9.6-12.0); Monocytes # 0.1 10*3/uL (0.11-0.8); Monocytes % 2.6 % (1.7-12.7); Neutrophils # 2.5 10*3/uL (1.4-7.4); Neutrophils % 64.5 % (38.7-73.9); Platelet Count 103 T/CUMM (130-400); Red Blood Count 2.55 MC/CUMM (3.8-5.5); Red Cell Distribution Width 19.6 % (9.3-17.3); White Blood Count 3.9 T/CUMM (4-12)
[2018-04-05] MEDS ORDERED: PHENYLEPHRINE INJ 160 MG in SODIUM CHLORIDE 0.9% 234 ML IV PRN (19:22)
[2018-04-05] MEDS: VASOPRESSIN 100 UNITS in SODIUM CHLORIDE 0.9% 95 ML IV SCH (19:55)
[2018-04-05 19:57] LABS: Band Neutrophils 11 % (0-10); Eosinophils 16 % (0-10); Lymphocytes 24 % (20-55); Metamyelocytes 13 %; Myelocytes 11 %; Nucleated Red Blood Cells 5 (0-5); Segmented Neutrophils 22 % (50-85); Total Cells Counted 100
[2018-04-05 19:58] LABS: Platelet Estimate Decreased; Polychromasia 1+
[2018-04-05 19:59] LABS: Burr Cells 1+; Ovalocytes 1+
[2018-04-05] MEDS: LACTULOSE 20 GM/30 ML UDCUP PO SCH (20:02)
[2018-04-05] MEDS: NOREPINEPHRINE 16 MG in SODIUM CHLORIDE 0.9% 234 ML IV PRN (20:47)
[2018-04-05 23:34] VITALS: BP 87/39
[2018-04-06] MEDS: ALBUTEROL/IPRATROPIUM 3 ML NEB RESP TX SCH (00:04)
[2018-04-06 00:33] LABS: Hematocrit 29.6 VOL% (35.7-47.0); Hemoglobin 8.7 GM/DL (12.0-16.0)
[2018-04-06] MEDS: PIPERACILLIN/TAZOBACTAM 3,375 MG in SODIUM CHLORIDE 0.9% 100 ML IV SCH ×2 (01:08→04:50)
[2018-04-06 03:03] LABS: Basophils # 0.1 10*3/uL (0.0-0.2); Basophils % 0.9 % (0.0-0.8); Eosinophils % 8.1 % (0.00-10.9); Hemoglobin 8.1 GM/DL (12.0-16.0); Immature Granulocytes % 5.5 %; Immature Granulocytes Absolute 0.65 #; Lymphocytes # 2.2 10*3/uL (1.4-4.0); Lymphocytes % 18.7 % (21.3-54.2); Mean Corpuscular Hemoglobin 35 PG (27-34); Mean Corpuscular Volume 123.5 FL (87-102); Mean Platelet Volume 10.2 FL (9.6-12.0); Monocytes # 0.7 10*3/uL (0.11-0.8); Monocytes % 5.6 % (1.7-12.7); NRBC # 3.72 10*3/uL; Neutrophils # 7.2 10*3/uL (1.4-7.4); Neutrophils % 61.2 % (38.7-73.9); Platelet Count 108 T/CUMM (130-400); Red Blood Count 2.34 MC/CUMM (3.8-5.5); Red Cell Distribution Width 22.8 % (9.3-17.3); White Blood Count 11.8 T/CUMM (4-12)
[2018-04-06] MEDS ORDERED: SODIUM CHLORIDE 0.9% 1,000 ML IV ONE (03:03)
[2018-04-06 03:05] LABS: Hematocrit 28.9 VOL% (35.7-47.0)
[2018-04-06 03:08] LABS: INR 1.7; PT Patient Result 17.9 SECS
[2018-04-06 03:23] LABS: Albumin 1.7 G/DL (3.4-5.0); Bilirubin,Total 4.6 MG/DL (0.2-1.0); Calcium 8.1 MG/DL (8.5-10.1); Osmolality,Calculated 298.6 MOS/KG (273-304); Potassium 5.4 MMOL/L (3.5-5.1)
[2018-04-06] MEDS: VASOPRESSIN 100 UNITS in SODIUM CHLORIDE 0.9% 95 ML IV SCH (03:37)
[2018-04-06] MEDS ORDERED: EPINEPHrine 1 MG/ML VIAL ONE (03:40)
[2018-04-06] MEDS ORDERED: NOREPINEPHRINE 4 MG/4 ML VIAL IV ONE ×2 (03:48→03:49)
[2018-04-06] MEDS: NOREPINEPHRINE 16 MG in SODIUM CHLORIDE 0.9% 234 ML IV PRN (03:49)
[2018-04-06 03:52] LABS: Band Neutrophils 5 % (0-10); Eosinophils 5 % (0-10); Lymphocytes 51 % (20-55); Metamyelocytes 7 %; Nucleated Red Blood Cells 20 (0-5); Platelet Estimate Decreased; Polychromasia Few; Segmented Neutrophils 28 % (50-85); Total Cells Counted 100
[2018-04-06 03:53] LABS: Smudge Cells Few
[2018-04-06] MEDS: SODIUM CHLORIDE 0.9% 1,000 ML IV SCH (06:07)
== END 2018-04-06 03:52 | disposition expired | DRG 432 ==
LOC: N.ED 08:09 → N.EDINP 09:25 → N.3E 09:58 → N.CC 04-05 13:46
PROVIDERS: ADMIT Family Medicine; ATTEND Family Medicine